=== PATIENT | female | born 1965 | race Caucasian/White ===

== ENCOUNTER 2023-11-17 19:47 | Emergency (ER) | payer BC, SELFPAY ==
[2023-11-17 19:50] VITALS: BP 166/89
[2023-11-17 19:56] LABS: Glucose - Point of Care 213 mg/dl (70-99)
[2023-11-17 20:11] LABS: % Basophils 0.2 % (0-2); % Immature Granulocytes 0.3 % (0-0.5); % Monocytes 6.6 % (1.7-9.3); % Neutrophils 78.9 % (42.2-75.2); Absolute Immature Granulocytes 0.1 10^3/uL (0-0.05); Absolute Neutrophils 11.3 10^3/uL (1.4-6.5); Hemoglobin 14.6 g/dL (12.0-16.0); Mean Corp Hgb Conc. 33.2 g/dL (33.0-37.0); Mean Corpuscular Hgb 29.6 pg (27.0-31.0); Mean Corpuscular Volume 89.1 fL (81.0-99.0); Mean Platelet Volume 10.7 fL (7.4-10.4); Nucleated Red Blood Cells % 0 %; Platelet Count 259 10^3/uL (130-400); Red Blood Cell Count 4.94 10^6/uL (4.20-5.40); Red Cell Dist. Width 13.5 % (11.5-14.5); White Blood Cell Count 14.4 10^3/uL (4.8-10.8)
--- NOTE | 2023-11-17 20:11 | ED.CVA ---
History of Present Illness
General
Chief Complaint: CVA/TIA Symptoms
Source: family and ambulance crew
Exam Limitations: none
Time Seen by Provider: 11/17/23 20:06
Nursing documentation reviewed up to this point in time: agreed with
Onset of Stroke Symptoms
Onset of symptoms known: Yes
Date of onset of symptoms: 11/17/23
Time of onset of symptoms: 15:30
Time pt last seen normal is known: No
Travel History
Have you had any contact with someone who has COVID-19?: Unable to Answer
Do you have any symptoms of coronavirus? Fever > 100 degrees, chills, cough, shortness of breath, sore throat, loss of taste or smell, muscle aches, or headache?: Unable to Answer
History of Present Illness
History of Present Illness:
58-year-old female presents emergency department due to left facial droop and left-sided weakness. She arrives unresponsive and cannot give a history. Son reports that she did vomit at about 3:30 PM today.
Past History
Past History
ED Past Medical History: GERD, HTN, Hypercholesterolemia and NIDDM
ED Past Surgical History: None
Social History
Tobacco: Non-smoker
Personal: Single
Family History
Family History: CAD
Review of Systems
Review of Systems
Allergies reviewed?: Yes
Unable to obtain full review of systems at this time due to: non-verbal
All Other Systems: Not applicable
ABD/GI: Reports vomiting
Phy Exam
Physical Exam
Physical Exam:
Physical Exam
General: non responsive, hypertensive
Neck: supple. no meningeal signs. normal posterior pharynx
Heart: s1/s2 regular rate and rhythm, no murmur. equal radial
pulses.
HEENT: right pupil 5 mm, left pupil 3 mm
Lungs: moderate respiratory distress. clear bilaterally
Abdomen: normal bowel sounds. not tender. no CVAT
Neuro: unresponsive, obtunded
Skin: no rash
Psychiatric: obtunded
Extremities: no edema. no calf tenderness. negative homans. good distal pulses
Scores
NIH Stroke Score
Level of Consciousness: 3 - Totally unresponsive
LOC Questions: 2-Neither correct
LOC Commands: 2-Performs neither correctly
Best Horizontal Gaze: 1-Partial gaze palsy
Visual Carranza: 0=Normal, no visual loss
Facial Palsy: 0=Normal, symmetrical
Motor - Right Arm: 4=No movement
Motor - Left Arm: 4=No movement
Motor - Right Le-No movement
Motor - Left Le-No movement
Limb Ataxia: 0-Absent
Sensation: 0-Normal
Best Language: 3-Mute/global aphasia
Dysarthria: UN-Intubated, other
Extinction and Inattention: 2-Total da inattention
Total Score:: 29
Thrombolytic Contraindication
Inclusion and Exclusion criteria reviewed: Yes
Reasons for NON-Tx with Thrombolytics ABSOLUTE Exclusions: Evidence of intracranial hemorrhage on pre-treatment CT head
IAT Contraindications: NIHSS greater than 24 [address]
Course
Orders/Labs/Results
Orders:
Orders
11/17/23 19:58
EKG [Electrocardiogram (*1)] Urgent
Reason for Study: TIA/Stroke
CT Head W/o Cont STROKE ALERT Stat
Reason For Exam: nonverbal, blown pupil
11/17/23 20:00
EKG- Treatment ONCE
11/17/23 20:03
Complete Blood Count/With Diff Urgent
Comprehensive Metabolic Panel Urgent
Triglycerides Urgent
Comment: ADDON
Troponin I Urgent
11/17/23 20:05
Propofol 1,000,000 Mcg/100 ml [Diprivan] 1,000,000 mcg in 100 ml .ROUTE .STK-MED
11/17/23 20:07
FentaNYL 1,000 MCG/100 ML [Sublimaze] 1,000 mcg in 100 ml IV NOW
Indication:: Light Sedation
Begin Infusion:: Now
Goal:: pain score </= 1, CPOT 0-2
Maximum dose in mcg/hr:: 300
Initial Dose in mcg/hr:: 50
Titration Instructions:: Titrate every 30 minutes if patient exhibits signs of pain or discomfort
Titration Instructions:: (pain score >/= 2, CPOT >/= 3).
Titration Instructions:: Administer bolus dose and increase infusion by 25 mcg/hr.
Taper Instructions:: If pain score at goal for 4 consecutive hours (pain score </= 1, CPOT 0-2)
Taper Instructions:: decrease infusion by 50 mcg/hr every 2 hours.
Taper Instructions:: When dose </= 50 mcg/hr may turn infusion off and consider PRN
Taper Instructions:: intermittent bolus doses only.
Over-sedation Instructions:: If CPOT 0-2 (goal) and RASS -3 to -5 (below goal) decrease sedative by 50%
Over-sedation Instructions:: first. If pain score remains at goal and RASS remains below goal in 1 hour,
Over-sedation Instructions:: decrease opioid infusion by 50%.
Notify provider:: immediately if pt exhibits: chest wall rigidity, hemodynamic instability,
Notify provider:: agitation/pain despite maximum dosing, pain when RASS below goal.
Additional Instructions:: Patient MUST be mechanically ventilated.
Fentanyl Citrate/Pf [Sublimaze] 100 mcg IV NOW STA
Fentanyl Citrate/Pf [Sublimaze] 50 mcg IV [id number] PRN
Propofol 1,000,000 Mcg/100 ml [Diprivan] 1,000,000 mcg in 100 ml IV NOW
Indication:: Light Sedation
Begin Infusion:: Now
Goal:: RASS 0 to -2
Maximum dose in mcg/kg/min:: 50
Initial dose based on RASS:: Yes
If RASS is:: +1 or pt hemodynamically unstable (SBP < 90mmHg), initiate at 10 mcg/kg/min
If RASS is:: +2, initiate at 20 mcg/kg/min
If RASS is:: greater than or equal to +3, initiate at 30 mcg/kg/min
Titration Instructions:: Titrate by 5-10 mcg/kg/min every 5 minutes until RASS 0 to -2 achieved.
Taper Instructions:: If RASS is at or below goal for 4 consecutive hours decrease infusion by
Taper Instructions:: 5-10 mcg/kg/min every 2 hours to off.
Over-sedation Instructions:: If CPOT 0-2 (at goal) AND RASS -3 to -5 (below goal) decrease sedative by
Over-sedation Instructions:: 50% first. If pain score remains at goal and RASS remains below goal in
Over-sedation Instructions:: 1 hour, decrease opioid infusion by 50%.
Notify provider:: immediately if patient exhibits signs/symptoms of propofol-related
Notify provider:: infusion syndrome.
Additional Instructions:: Patient MUST be mechanically ventilated and MUST receive analgesia.
CR Chest Portable - 1 View Urgent
Comment:
Reason For Exam: post intubation
Reason Study Needs to be Portable: Patient Unstable
11/17/23 20:11
ASA Classification Routine
Propofol [Diprivan] 10 mg IV NOW STA
11/17/23 20:22
ABG [Arterial Blood Gas] Urgent
%Oxygen/Room Air: 100% on 100
11/17/23 20:29
CT Head Angio W/wo Iv Contrast Stat
Comment:
Reason For Exam: intracranial hemorrhage, unresponsive, left side w
11/17/23 20:35
Nicardipine 40 mg/200 ml [Cardene] 40 mg in 200 ml IV NOW
Initial dose in mg/hr, then titrate:: 5
Titrate to keep:: SBP 120 - 140 mmHg
Titrate by mg/hr:: 2.5 mg/hr
Frequency of titrations (minutes):: 5-15 minutes
Maximum dose in mg/hr:: 15
Begin to taper infusion when:: Remained at goal for 2hrs
Taper by mg/hr:: 2.5 mg/hr
Frequency of taper (minutes) if patient maintains goal:: every 15-30 minutes
Taper to off?: Yes
If infusion off & no longer maintaining goal:: Contact Provider
11/17/23 20:42
Mannitol 20% 500 ml [Mannitol 20%] 100 gram in 500 ml IV NOW
11/17/23 21:30
Protime/PTT Urgent
Comment: IF USING BUTTERFLY, BLEED AIR OUT WITH WASTE TUBE BEFORE THE BLUE TUBE
11/17/23 21:45
Mannitol 20% 500 ml [Mannitol 20%] 100 gram in 500 ml IV ONCE
11/18/23 08:00
Polyethylene Glycol Powder [Miralax] 17 grams TUBE DAILY
Abnormal Lab Results
11/17/23 11/17/23 11/17/23
19:50 20:03 20:22
WBC 14.4 H 10^3/uL
(4.8-10.8)
MPV 10.7 H fL
(7.4-10.4)
Abs Immat Gran (auto) 0.1 H 10^3/uL
(0-0.05)
Absolute Neuts (auto) 11.3 H 10^3/uL
(1.4-6.5)
Absolute Monos (auto) 1.0 H 10^3/uL
(0.1-0.6)
Neutrophils % 78.9 H %
(42.2-75.2)
Lymphocytes % 14.0 L %
(20.5-51.1)
pH 7.29 L
(7.35-7.45)
pCO2 51 H mmHg
(32-35)
pO2 128 H mmHg
(83-108)
ABG O2 Sat (Measured) 99.5 H %
(94-98)
Chloride 108 H mmol/L
(98-107)
BUN 18 H mg/dl
(7-17)
Glucose 250 H mg/dl
(70-99)
ALT 37 H U/L
(0-35)
POC Glucose 213 H mg/dl
(70-99)
11/17/23 20:03
11/17/23 20:03
Vital Signs
Initial and Last Documented VS:
Initial Vital Signs
Pulse Resp BP Pulse Ox
68 31 166/89 99
11/17/23 19:50 11/17/23 19:50 11/17/23 19:50 11/17/23 19:50
Last Documented Vital Signs
Temp Pulse Resp BP Pulse Ox
95.5 F L 91 20 143/61 100
11/17/23 20:29 11/17/23 21:02 11/17/23 21:02 11/17/23 21:02 11/17/23 21:02
Procedures
Intubations
Procedure completed by: Dr. Bowling
Method of Intubation: glidescope
Tube size (cm): 7.5
Placement confirmed by: auscutation, CXR, capnography and direct visualization
Breath sounds after intubation: equal
Intubation complications: no complications
MDM/Problems Addressed
Differential Diagnosis Includes:
Hemorrhagic CVA, CVA, overdose
MDM/Problems Addressed:
58-year-old female with intracranial hemorrhage, intubated for airway protection and respiratory failure. Patient takes aspirin, no other blood thinners. Discussed with Dr. Avitia, neurosurgeon who accepts patient to ICU and will take to OR. IV
mannitol given, patient on IV propofol drip.
*Radiology
Radiology exam reviewed: radiology read reviewed (CT shows large intraparenchymal hemorrhage on right with extension to ventricles CTA shows no signs of AV malformation or aneurysm)
*Pulse Oximetry
Patient hypoxic: yes
*EKG
Interpreted by ED Provider?: Yes
EKG Intrepretation Date: 11/17/23
EKG Intrepretation Time: 20:26
Interpretation: abnormal
Comparison EKG: changes noted
Heart Rate: 79
Rate: normal
Rhythm: sinus
[place]: normal axis
Interval: long QT
QRS Pattern: normal QRS
Ischemia: no ischemia
*Worm Packer Interpretation
Rate: normal
Interpretation: normal
Heart Rate: 80
Rhythm: sinus
*Critical Care Note
Total Time (30-74mins, 75-104mins- exclusive of procedures): 92
comment:
Critical care statement: A total of 92 minutes of critical care time was provided for this patient. This includes management of unstable vital signs, evaluation of the patient at bedside, reviewing the patient's pertinent medical records, discussion
with consultants, review of old EKGs and review of pertinent medical records. This time with separate from time utilized to perform the aforementioned documented procedures
Patient Management
Social determinants of health affecting care: Living situation
Discussion with other providers: Gasoline Attendant (neurosurgeon Dr. Avitia)
Escalation/DeEscalation of care consider admission/obs:
transfer indicated
ED Attending Note
-
Portions of this chart may have been created with voice recognition software.� Occasional wrong word or��sound alike� substitutions may have occurred due to the inherent limitations of voice recognition software.
Discharge Plan
Departure
Patient Disposition: Acute Care Hospital
Date of Disposition: 11/17/23
Time of Disposition: 21:37
Patient with high blood pressure during this ER visit?: Yes
Discharge Problem:
Intracranial hemorrhage, Respiratory failure
Prescriptions:
No Action
venlafaxine 37.5 MG capsule,extended release 24hr
37.5 mg PO DAILY
cetirizine [Zyrtec] 5 MG tablet
10 mg PO
simvastatin 40 MG tablet
40 mg PO HS
metformin 1,000 MG tablet
1,000 mg PO BID
lisinopril [Zestril] 30 MG tablet
30 mg PO
aspirin [Rodriguez Chewable Aspirin] 81 MG tablet,chewable
162 mg PO
albuterol sulfate 1 PUFF HFA aerosol inhaler
1 puff inhalation
dexmethylphenidate [Focalin XR] 30 MG capsule,ER biphasic 50-50
30 mg PO
venlafaxine 75 MG tablet extended release 24hr
75 mg PO
Rhinocort
Patient Comments:
nasal spray used at night
oxycodone-acetaminophen 5 MG/325 MG tablet
1 - 2 tab PO Q4HPRN PRN (Reason: pain) Qty: 30 0RF
lansoprazole [Prevacid] 30 MG capsule,delayed release(DR/EC)
30 mg PO DAILY Qty: 14 0RF
Referrals:
UNKNOWN,NO INTERVIEW [Family Provider] -
Hospital Transfer
Other hospital: [facility]
I certify that the patient requires transfer: Yes
Discussed case with accepting physician: Dr. Yany Avitia
Reason for transfer: higher level of care and specialties available
Interventions
Interventions:
*Risk Screen - Suicide Last Done: 11/17/23 19:50
*General Assessment Last Done: 11/17/23 19:50
*Neglect/Abuse Screening Last Done: 11/17/23 19:50
*ED COVID-19 Vaccine History Last Done: 11/17/23 19:50
[2023-11-17] MEDS: DIPRIVAN 100 IV (20:20)
[2023-11-17] MEDS: DIPRIVAN 10 MG IV (20:20)
[2023-11-17 20:24] LABS: ALT (SGPT) 37 U/L (0-35); AST (SGOT) 35 U/L (14-36); Albumin 4.2 g/dl (3.5-5.0); Alkaline Phosphatase 122 U/L (38-126); Blood Urea Nitrogen 18 mg/dl (7-17); Calcium 8.4 mg/dl (8.4-10.2); Carbon Dioxide 22 mmol/L (22-30); Chloride 108 mmol/L (98-107); Glucose 250 mg/dl (70-99); Potassium 3.9 mmol/L (3.5-5.1); Sodium 138 mmol/L (135-145); Total Protein 6.8 g/dl (6.3-8.2); eGFR > 60.00
[2023-11-17 20:27] LABS: B.E. -2.8 mmol/L; HCO3 24.5 mmol/L (21-28); O2 Saturation % 99.5 % (94-98); PCO2 51 mmHg (32-35); PO2 128 mmHg (83-108); pH 7.29 (7.35-7.45)
[2023-11-17 20:32] VITALS: BP 160/57
[2023-11-17 20:35] LABS: Troponin I < 0.012 ng/ml
[2023-11-17 20:45] VITALS: BP 160/45
[2023-11-17 21:02] VITALS: BP 143/61
[2023-11-17] MEDS: MANNITOL 20% 500 IV (21:04)
[2023-11-17 21:18] VITALS: BP 112/90
[2023-11-17 21:25] VITALS: BP 110/77
[2023-11-17 21:48] LABS: Triglycerides 122 mg/dl (10-149)
== END 2023-11-17 22:14 | disposition short-term general hospital (02) ==
LOC: EMR 19:47
PROVIDERS: EMERGENCY PHYSICIAN Emergency Medicine
DX: I62.9 Nontraumatic intracranial hemorrhage, unspecified (principal); J96.90 Respiratory failure, unspecified, unspecified whether with hypoxia or hypercapnia; I10 Essential (primary) hypertension; Z79.82 Long term (current) use of aspirin
CPT/HCPCS: 99291; 31500; 96374; 96375; 96376; 70450; 70496; 71045; 80053; 82805; 82962; 84478; 84484; 85025; 93005; 94002; Q9967

== ENCOUNTER 2023-12-06 19:47 | Emergency (ER) | payer BC, SELFPAY ==
[2023-12-06 19:53] VITALS: BP 158/64
[2023-12-06 20:00] VITALS: BP 172/70
--- NOTE | 2023-12-06 20:03 | ED.GENMED ---
History of Present Illness
General
Chief Complaint: Catheter/Tube Problem
Source: patient
Exam Limitations: none
Time Seen by Provider: 12/06/23 19:53
Nursing documentation reviewed up to this point in time: agreed with
Travel History
Have you had any contact with someone who has COVID-19?: Unable to Answer
Do you have any symptoms of coronavirus? Fever > 100 degrees, chills, cough, shortness of breath, sore throat, loss of taste or smell, muscle aches, or headache?: Unable to Answer
History of Present Illness
History of Present Illness:
58-year-old female presents emergency department due to a displaced tracheostomy. Staff noted when patient was coughing the trach was coming out.
Past History
Past History
ED Past Medical History: GERD, HTN, Hypercholesterolemia and NIDDM
ED Past Surgical History: None
Social History
Tobacco: Non-smoker
Personal: Single
Family History
Family History: CAD
Review of Systems
Review of Systems
Allergies reviewed?: Yes
All Other Systems: Not applicable
Constitutional: Reports no symptoms
EENT: Reports no symptoms
Respiratory: Reports no symptoms
Cardiac: Reports no symptoms
ABD/GI: Reports no symptoms
: Reports no symptoms
Musculoskeletal: Reports no symptoms
Skin: Reports no symptoms
Neurological: Reports no symptoms
Endocrine: Reports no symptoms
Hematologic/Lymphatic: Reports no symptoms
Psychiatric: Reports no symptoms
Phy Exam
Physical Exam
Physical Exam:
Physical Exam
General: Chronic ill appearance
Neck: supple. no meningeal signs. normal posterior pharynx
Heart: s1/s2 regular rate and rhythm, no murmur. equal radial
pulses.
HEENT: Pupils equal round reactive to light, EOMI, tracheostomy dislodging
Lungs: no acute respiratory distress. clear bilaterally
Abdomen: normal bowel sounds. not tender. no CVAT
Neuro: Squeezes hand, opens eyes
Skin: no rash, sebastian in place on scalp
Psychiatric: Minimal interaction
Extremities: no edema. no calf tenderness. negative homans. good distal pulses
Course
Vital Signs
Initial and Last Documented VS:
Initial Vital Signs
Temp Pulse Resp BP Pulse Ox
97.9 F 80 24 158/64 94
12/06/23 19:53 12/06/23 19:53 12/06/23 19:53 12/06/23 19:53 12/06/23 19:53
Last Documented Vital Signs
Temp Pulse Resp BP Pulse Ox
97.9 F 86 14 171/66 94
12/06/23 19:53 12/06/23 21:45 12/06/23 20:45 12/06/23 21:00 12/06/23 21:45
Procedures
Other
Indication for procedure:: Dislodged tracheostomy tube
Procedure completed by: Dr. Bowling
Consent form signed: No
If no, reason: Emergency procedure
Additional Procedure:
Tracheostomy tube repositioned after becoming dislodged. Obturator used. Patient oxygenating well on 3 L. Stable for discharge.
MDM/Problems Addressed
Differential Diagnosis Includes:
Tracheal dislodgment
MDM/Problems Addressed:
58-year-old female with tracheostomy dislodgment. Repositioned without incident with obturator.
Chronic conditions affecting care: Neurological disorder (Intracranial hemorrhage)
Acute Exacerbation and/or Progression of Chronic Illness: Neurological disorder (Intracranial hemorrhage)
*Pulse Oximetry
Patient hypoxic: no
*EKG
Interpreted by ED Provider?: NA
*Promotions Executive Producer Interpretation
Rate: Promotions Executive Producer- N/A
*Critical Care Note
Total Time (30-74mins, 75-104mins- exclusive of procedures): Not Applicable
Data Reviewed
Review of Other/Old Records Reveals: Radiology Studies (Prior intracranial hemorrhage, CT scan reviewed showing intracranial hemorrhage from 11/17/2023)
Patient Management
Social determinants of health affecting care: Living situation
Discussion with other providers: Other (Respiratory therapy)
Escalation/DeEscalation of care consider admission/obs:
Admit not indicated
ED Attending Note
-
Portions of this chart may have been created with voice recognition software.� Occasional wrong word or��sound alike� substitutions may have occurred due to the inherent limitations of voice recognition software.
Discharge Plan
Departure
Patient Disposition: [facility]/SNF
Date of Disposition: 12/06/23
Time of Disposition: 20:47
Patient with high blood pressure during this ER visit?: Yes
Condition: Good
Discharge Problem:
Acute tracheostomy management
Instructions: How to Care for a Tracheostomy, BLOOD PRESSURE
Prescriptions:
No Action
venlafaxine 37.5 MG capsule,extended release 24hr
37.5 mg PO HS
atorvastatin 40 mg Tablet
80 mg PO QPM
levothyroxine 137 mcg Tablet
137 mcg feeding tube DAILY@2100
labetalol 200 mg Tablet
200 mg PO BID
sodium chloride 3 % Solution For Nebulization
4 ml INHALATION R Q4
venlafaxine 25 mg Tablet
12.5 mg feeding tube TID
citalopram 20 mg Tablet
20 mg PO DAILY
insulin aspart U-100 [Novolog U-100 Insulin aspart] 100 unit/mL Solution
1 - 20 sliding scale dose SC QID@00,06,12,18
lisinopril 40 mg Tablet
40 mg PO DAILY
modafinil 100 mg Tablet
200 mg PO DAILY
albuterol sulfate 2.5 mg/0.5 mL Solution For Nebulization
2.5 mg INHALATION R Q4 PRN (Reason: dyspena/wheezing)
insulin glargine [Lantus Solostar U-100 Insulin] 100 unit/mL (3 mL) Insulin Pen
60 unit SC DAILY
Zyrtec 10 mg Capsule
10 mg PO DAILY PRN (Reason: allergies)
Interventions
Interventions:
*Risk Screen - Suicide Last Done: 12/06/23 19:54
*General Assessment Last Done: 12/06/23 19:54
*Neglect/Abuse Screening Last Done: 12/06/23 19:54
*ED COVID-19 Vaccine History Last Done: 12/06/23 19:54
QM-Hmawsy-Piadrynxdi Assessment Last Done: 12/06/23 19:55
ED-Female Genitourinary Assessment Last Done: 12/06/23 19:55
[2023-12-06 21:00] VITALS: BP 171/66
[2023-12-06 22:00] VITALS: BP 172/68
== END 2023-12-06 22:59 ==
LOC: EMR 19:47
PROVIDERS: EMERGENCY PHYSICIAN Emergency Medicine; FAMILY PHYSICIAN Internal Medicine
DX: T85.528A Displacement of other gastrointestinal prosthetic devices, implants and grafts, initial encounter (principal); I10 Essential (primary) hypertension
CPT/HCPCS: 99283